=== PATIENT | female | born 1950 | race Native Hawaiian/Other Pacific Islander ===

== ENCOUNTER 2018-07-31 09:12 | Outpatient (CLI) | payer OTHER | END 2018-07-31 09:13 | disposition home or self-care (01) | LOC: C.LAB 09:12 | DX: K76.0 Fatty (change of) liver, not elsewhere classified (principal); Z80.0 Family history of malignant neoplasm of digestive organs ==

== ENCOUNTER 2018-08-22 09:52 | Outpatient (CLI) | payer OTHER | END 2018-08-22 09:53 | disposition home or self-care (01) | LOC: C.USIC 09:52 | DX: K76.0 Fatty (change of) liver, not elsewhere classified (principal); Z80.0 Family history of malignant neoplasm of digestive organs ==

== ENCOUNTER 2018-10-11 08:02 | Outpatient (CLI) | payer OTHER | END 2018-10-11 08:03 | disposition home or self-care (01) | LOC: C.LAB 08:02 | DX: E04.2 Nontoxic multinodular goiter (principal) ==

== ENCOUNTER 2018-10-11 08:07 | Outpatient (CLI) | payer OTHER | END 2018-10-11 08:08 | disposition home or self-care (01) | LOC: C.LAB 08:07 | DX: C85.80 Other specified types of non-Hodgkin lymphoma, unspecified site (principal) ==